=== PATIENT | female | born 1960 | race Caucasian/White ===

== ENCOUNTER 2017-02-12 15:31 | Emergency (ER) | payer BC ==
[2017-02-12 15:44] VITALS: BP 124/74
--- NOTE | 2017-02-12 17:00 | UC ---
Skin Complaint HPI - HPI Summary HPI Summary: LAST NIGHT NOTICED A BUG BITE ON LEFT MEDIAL LOWER LEG. NOT PAINFUL. NOT ITCHY. NOT SWOLLEN. PT FEELS WELL - NO FEVER, JOINT PAIN, MUSCLE ACHES OR ACOSTA. - History of Current Complaint Chief Complaint: UCSkin Time Seen by Provider: 02/12/17 16:48 Stated Complaint: BUG BITE Hx Obtained From: Patient Hx Last Menstrual Period: one month ago Onset/Duration: Sudden Onset, Lasting Hours, Still Present Timing: Constant Onset Severity: Mild Current Severity: None Pain Intensity: 0 Pain Scale Used: 0-10 Numeric Location: Discrete - LEFT MEDIAL LOWER LEG Character: Redness Aggravating: Nothing Alleviating: Nothing Associated Signs & Symptoms: Positive: Negative - Allergy/Home Medications Allergies/Adverse Reactions: Allergies Allergy/AdvReac Type Severity Reaction Status Date / Time Sulfa Antibiotics Allergy Fever Verified 01/05/16 19:52 Environmental Allergy Facial Uncoded 04/04/14 19:36 Redness/Flushing Review of Systems Constitutional: Negative Skin: Other - INSECT BITE Respiratory: Negative Cardiovascular: Negative Gastrointestinal: Negative All Other Systems Reviewed And Are Negative: Yes PMH/Surg Hx/FS Hx/Imm Hx Previously Healthy: Yes - Surgical History Surgical History: Yes Surgery Procedure, Year, and Place: Ganglion cyst left hand. D/C - uterine cyst removed (benign) 2012. WISDOM TEETH- AGE 17 - Family History Known Family History: Positive: Hypertension - Social History Alcohol Use: Rare Substance Use Type: None Smoking Status (MU): Never Smoked Tobacco - Immunization History Most Recent Influenza Vaccination: 2014 Most Recent Tetanus Shot: unsure Physical Exam Triage Information Reviewed: Yes Appearance: Well-Appearing, No Pain Distress, Well-Nourished Vital Signs: Initial Vital Signs Temp 98 F 02/12/17 15:41 Pulse 77 02/12/17 15:41 Resp 16 02/12/17 15:41 BP 124/74 02/12/17 15:41 Pulse Ox 100 02/12/17 15:41 Vital Signs Reviewed: Yes Eyes: Positive: Conjunctiva Clear ENT: Positive: Hearing grossly normal Neck: Positive: Supple Respiratory: Positive: No respiratory distress, No accessory muscle use Cardiovascular: Positive: Pulses Normal Abdomen Description: Positive: Soft Musculoskeletal: Positive: No Edema Neurological: Positive: Alert Psychological: Positive: Age Appropriate Behavior Skin: Positive: Other - 2CM X 1.5CM AREA OF ERYTHEMA SURROUNDING CENTRAL PUNCTUM C/W INSECT BITE. SLIGHT PALENESS SURROUNDING Course/Dx - Diagnoses Provider Diagnoses: INSECT BITE - LOCAL REACTION Discharge - Discharge Plan Condition: Stable Disposition: HOME Patient Education Materials: Insect Bite or Sting (ED) Additional Instructions: AT PRESENT APPEARANCE NOT CONSISTENT WITH SKIN INFECTION OR LYME DISEASE. KEEP CLEAN AND DRY. TAKE OTC ANTIHISTAMINE TO COVER FOR ANY ALLERGIC COMPONENT. SEEK FOLLOW-UP HERE IF YOU DEVELOP SPREADING REDNESS OF THE SKIN, PURULENT DRAINAGE, FEVER, INCREASED PAIN OR ANY OTHER CONCERNING SYMPTOMS.
== END 2017-02-12 17:05 | disposition home or self-care (01) ==
LOC: UCEAST 15:31
DX: S80.862A Insect bite (nonvenomous), left lower leg, initial encounter (principal); W57.XXXA Bitten or stung by nonvenomous insect and other nonvenomous arthropods, initial encounter; Y93.9 Activity, unspecified; Y92.9 Unspecified place or not applicable; Y99.9 Unspecified external cause status
CPT/HCPCS: 99211; G0463